=== PATIENT | female | born 1930 | race Caucasian/White ===

== ENCOUNTER 2016-11-10 11:22 | Day surgery (SDC) | payer MEDICARE ==
[2016-11-10] VITALS (294 sets, daily range): BP systolic 83–147; BP diastolic 66–95; PULSE 72–89; TEMP 97.4–98.2; O2SAT 55–100
[~2016-11-10] VITALS: Ht 144.8 cm; Wt 56.8 kg
[~2016-11-10 11:22] MED LIST: BLADDER PILL PO; BLOOD PRESSURE; CARBATROL100 MG PO; FERROUS SU325 MG/TAB PO; IMIPRAMINE HCL25 MG PO; LISINOPRIL/HCTZ1 TAB PO; NORCO 325 MG-51 TAB PO; PAXIL 20MG20 MG PO; PAXIL PO; PREDNISONE20 MG PO; PRIL40 PO; TEGRETOL 2200 MG/TA1 PO; TOFRANIL 25MG T25 MG PO; ZESTORETIC 12.51 TAB PO; [UNRECOGNIZED DRUG - CODE] OP; [UNRECOGNIZED DRUG - OTHER]
[2016-11-10 12:11] LABS: INR 1.1 (0.8-3.0); PROTHROMBIN TIME 11.9 SECONDS (9.7-12.8)
[2016-11-10 12:16] LABS: HEMATOCRIT 37.8 % (37.0-47.0); HEMOGLOBIN 12.3 g/dl (12.5-16.0); MEAN CELL VOLUME 92 fl (80.0-100.0); MEAN CORPUSCULAR HEMOGLOBIN 30 pg (27.0-31.0); MEAN CORPUSCULAR HGB CONC 33 g/dl (33.0-37.0); MEAN PLATELET VOLUME 12.1 fl (7.4-10.4); PLATELET COUNT 200 K/mm3 (130-400); REDCELL DISTRIBUTION WIDTH-CV 14.4 % (11.5-14.5); WHITE BLOOD COUNT 7.1 K/mm3 (4.8-10.8)
[2016-11-10] MEDS ORDERED: XANAX .25M0.25 MG/TA PO (12:22)
[2016-11-10] MEDS ORDERED: LASIX 20MG TABL20 MG PO (12:24)
[2016-11-10 12:25] LABS: CALCIUM 8.5 mg/dL (8.4-10.2); CREATININE, serum 0.99 mg/dL (0.52-1.25); POTASSIUM 3.7 mmol/L (3.4-5.0)
[2016-11-10] MEDS ORDERED: LOPRESSOR 225 MG/TAB PO (12:26)
[2016-11-10] MEDS ORDERED: CRANBERRY FRUI425 MG PO (12:27)
[2016-11-11] VITALS (268 sets, daily range): BP systolic 103–109; BP diastolic 47–65; PULSE 70–79; TEMP 97.5–98; O2SAT 80–100
[2016-11-11 06:46] LABS: BASO % 0.2 % (0.0-2.0); EOS # 0.1 (0.0-0.7); EOS % 1.2 % (0-4.0); GRAN # 7.4 (1.4-6.5); LYMPH # 0.8 (1.2-3.4); LYMPH % 8.1 % (20.0-51.0); MEAN CELL VOLUME 93 fl (80.0-100.0); MEAN CORPUSCULAR HGB CONC 32 g/dl (33.0-37.0); MEAN PLATELET VOLUME 12.6 fl (7.4-10.4); MONO # 1.1 (0.1-0.6); MONO % 11.2 % (1.7-9.3); PLATELET COUNT 190 K/mm3 (130-400); RED BLOOD COUNT 3.72 M/mm3 (4.10-5.30); REDCELL DISTRIBUTION WIDTH-CV 14.3 % (11.5-14.5); WHITE BLOOD COUNT 9.4 K/mm3 (4.8-10.8)
[2016-11-11 06:51] LABS: HEMATOCRIT 34.4 % (37.0-47.0); HEMOGLOBIN 11.1 g/dl (12.5-16.0); MEAN CORPUSCULAR HEMOGLOBIN 30 pg (27.0-31.0)
[2016-11-11 06:59] LABS: CALCIUM 8.3 mg/dL (8.4-10.2); CREATININE, serum 0.99 mg/dL (0.52-1.25); POTASSIUM 3.4 mmol/L (3.4-5.0)
[2016-11-11] MEDS ORDERED: BRILINTA90 MG PO (09:06)
[2016-11-11] MEDS ORDERED: LIPITOR 40MG TA40 MG PO (09:06)
[2016-11-11] MEDS ORDERED: ASPIRIN E.C. 8181 MG PO (09:06)
== END 2016-11-11 11:00 | disposition home or self-care (01) ==
LOC: COL.CAR 11:22 → ICU 16:35 → COL.CAR 11-11 11:00
PROVIDERS: Internal Medicine Cardiovascular Disease
DX: I42.9 Cardiomyopathy, unspecified (principal); I25.10 Atherosclerotic heart disease of native coronary artery without angina pectoris; R06.02 Shortness of breath; I08.3 Combined rheumatic disorders of mitral, aortic and tricuspid valves; I09.81 Rheumatic heart failure; I50.20 Unspecified systolic (congestive) heart failure; K21.9 Gastro-esophageal reflux disease without esophagitis; I10 Essential (primary) hypertension; N39.46 Mixed incontinence; C85.90 Non-Hodgkin lymphoma, unspecified, unspecified site; G40.909 Epilepsy, unspecified, not intractable, without status epilepticus
CPT/HCPCS: OP; C1725; C1760; C1769; C1874; C1887; C1894; C9600; J0583; J2250; J3010; Q9967

== ENCOUNTER 2017-03-02 15:04 | Outpatient (RCR) | payer MEDICARE ==
[~2017-03-02 15:04] MED LIST changes: +ASPIRIN E.C. 8181 MG PO; +BRILINTA60 MG PO; +CRANBERRY FRUI425 MG PO; +LASIX 20MG TABL20 MG PO; +LIPITOR 40MG TA40 MG PO; +LOPRESSOR 225 MG/TAB PO; +XANAX .25M0.25 MG/TA PO
[2017-03-09] MEDS ORDERED: ELIQUIS 2.5 PO (14:39)
== END 2017-03-08 | disposition still patient (30) ==
LOC: COL.CR
DX: Z48.812 Encounter for surgical aftercare following surgery on the circulatory system (principal); Z95.5 Presence of coronary angioplasty implant and graft; I25.10 Atherosclerotic heart disease of native coronary artery without angina pectoris

== ENCOUNTER 2017-04-27 15:15 | Outpatient (RCR) | payer MEDICARE ==
[~2017-04-27 15:15] MED LIST changes: +BRILINTA90 MG PO; +COUMADIN 3MG3 MG/TAB PO; +ELIQUIS 2.5 PO
== END 2017-05-13 12:55 | disposition home or self-care (01) ==
LOC: COL.CR 15:15
DX: Z48.812 Encounter for surgical aftercare following surgery on the circulatory system (principal); Z95.5 Presence of coronary angioplasty implant and graft

== ENCOUNTER 2017-07-05 16:30 | Emergency (ER) | payer MEDICARE ==
[~2017-07-05] VITALS: Ht 121.9 cm; Wt 54.5 kg
[2017-07-05 16:33] VITALS: TEMP 96.9
[2017-07-05 18:42] VITALS: BP 115/68; PULSE 86
== END 2017-07-05 18:40 | disposition home or self-care (01) ==
LOC: COL.ER 16:30
DX: S52.502A Unspecified fracture of the lower end of left radius, initial encounter for closed fracture (principal); I10 Essential (primary) hypertension; F32.9 Major depressive disorder, single episode, unspecified; F41.9 Anxiety disorder, unspecified; E78.5 Hyperlipidemia, unspecified; I25.10 Atherosclerotic heart disease of native coronary artery without angina pectoris; Z85.72 Personal history of non-Hodgkin lymphomas; Z90.710 Acquired absence of both cervix and uterus; Z90.49 Acquired absence of other specified parts of digestive tract; Z90.89 Acquired absence of other organs; Z98.890 Other specified postprocedural states; Z79.82 Long term (current) use of aspirin; Z79.01 Long term (current) use of anticoagulants; W19.XXXA Unspecified fall, initial encounter
CPT/HCPCS: Q4050

== ENCOUNTER 2017-09-30 15:36 | Outpatient (RCR) | payer MEDICARE | END 2017-12-29 | disposition home or self-care (01) | LOC: MKS.ESL.OT | DX: S52.502D Unspecified fracture of the lower end of left radius, subsequent encounter for closed fracture with routine healing (principal) | CPT/HCPCS: G8984-GO; G8985-GO; G8986-GO ==

== ENCOUNTER 2017-12-21 14:47 | Outpatient (RCR) | payer SELFPAY | END 2017-12-24 | disposition home or self-care (01) | LOC: COL.CR | DX: Z02.9 Encounter for administrative examinations, unspecified (principal) ==

== ENCOUNTER 2018-03-10 15:18 | Outpatient (RCR) | payer SELFPAY | END 2018-03-23 | disposition home or self-care (01) | LOC: COL.CR | DX: Z02.9 Encounter for administrative examinations, unspecified (principal) ==

== ENCOUNTER 2018-05-05 15:52 | Outpatient (CLI) | payer MEDICARE ==
[~2018-05-05] VITALS: Ht 121.9 cm; Wt 55.7 kg
[2018-05-05 16:27] VITALS: BP 112/68; PULSE 52; TEMP 98
== END 2018-05-05 17:15 | disposition home or self-care (01) ==
LOC: EUO 15:52
DX: M81.0 Age-related osteoporosis without current pathological fracture (principal)
CPT/HCPCS: J3489

== ENCOUNTER 2018-05-26 14:09 | Outpatient (CLI) | payer MEDICARE ==
[~2018-05-26] VITALS: Ht 121.9 cm; Wt 54.0 kg
[2018-05-26 15:14] VITALS: BP 134/55; PULSE 82; TEMP 98.3
== END 2018-05-26 15:43 | disposition home or self-care (01) ==
LOC: EUO 14:09
DX: Z45.2 Encounter for adjustment and management of vascular access device (principal)
CPT/HCPCS: J1644

== ENCOUNTER 2018-06-23 14:09 | Outpatient (RCR) | payer SELFPAY | END 2018-06-24 | disposition home or self-care (01) | LOC: COL.CR | DX: Z02.89 Encounter for other administrative examinations (principal) ==

== ENCOUNTER 2018-09-22 15:00 | Outpatient (RCR) | payer SELFPAY | END 2018-09-26 | disposition home or self-care (01) | LOC: COL.CR | DX: Z02.89 Encounter for other administrative examinations (principal) ==

== ENCOUNTER 2018-11-24 14:12 | Outpatient (CLI) | payer MEDICARE ==
[~2018-11-24] VITALS: Ht 121.9 cm; Wt 45.9 kg
[2018-11-24 14:41] VITALS: BP 101/52; PULSE 52; TEMP 98.1
== END 2018-11-24 14:42 | disposition home or self-care (01) ==
LOC: EUO 14:12
DX: Z45.2 Encounter for adjustment and management of vascular access device (principal)
CPT/HCPCS: J1644

== ENCOUNTER 2018-12-06 15:10 | Outpatient (RCR) | payer MEDICARE | END 2018-12-26 | disposition home or self-care (01) | LOC: COL.CR | DX: Z02.89 Encounter for other administrative examinations (principal) ==

== ENCOUNTER 2019-02-23 14:49 | Outpatient (CLI) | payer MEDICARE ==
[~2019-02-23] VITALS: Ht 121.9 cm; Wt 56.8 kg
[2019-02-23 15:30] VITALS: BP 134/71; PULSE 84; TEMP 97.8
[2019-02-23] MEDS ORDERED: NAMENDA5 MG PO (15:30)
== END 2019-02-23 16:10 | disposition home or self-care (01) ==
LOC: EUO 14:49
DX: Z45.2 Encounter for adjustment and management of vascular access device (principal)
CPT/HCPCS: J1644

== ENCOUNTER 2019-03-16 14:34 | Outpatient (RCR) | payer SELFPAY ==
[~2019-03-16 14:34] MED LIST changes: +NAMENDA5 MG PO
== END 2019-04-03 | disposition home or self-care (01) ==
LOC: COL.CR
DX: Z02.89 Encounter for other administrative examinations (principal)

== ENCOUNTER → 2019-05-23 | Outpatient (CLI) | payer MEDICARE ==
[~2019-05-23] VITALS: Ht 121.9 cm; Wt 55.0 kg
[~2019-05-23] MED LIST changes: +TOPROL XL 25MG25 MG PO
[2019-05-23 15:14] VITALS: BP 102/63; PULSE 68; TEMP 97.1
== END ==
LOC: EUO 14:09
DX: Z45.2 Encounter for adjustment and management of vascular access device (principal)
CPT/HCPCS: J1644

== ENCOUNTER 2019-06-27 14:34 | Outpatient (RCR) | payer MEDICARE | END 2019-07-03 | disposition home or self-care (01) | LOC: COL.CR | DX: Z02.89 Encounter for other administrative examinations (principal) ==

== ENCOUNTER 2019-07-18 14:42 | Outpatient (RCR) | payer MEDICARE | END 2019-10-02 | disposition home or self-care (01) | LOC: COL.CR | DX: Z02.89 Encounter for other administrative examinations (principal) ==

== ENCOUNTER 2019-08-22 14:07 | Outpatient (CLI) | payer MEDICARE ==
[2019-08-22 14:31] VITALS: BP 120/69; PULSE 86; TEMP 98
== END 2019-08-22 15:03 | disposition home or self-care (01) ==
LOC: EUO 14:07
DX: Z79.899 Other long term (current) drug therapy (principal)
CPT/HCPCS: J1644

== ENCOUNTER 2019-11-02 13:41 | Outpatient (CLI) | payer MEDICARE ==
--- NOTE | 2019-11-01 18:30 | NUR ---
LEFT MESSAGE AND ENCOURAGED RETURN PHONE CALL TO REVIEW ID SCREENING
[~2019-11-02] VITALS: Ht 149.9 cm; Wt 56.5 kg
[2019-11-02 14:15] VITALS: BP 123/77; PULSE 74; TEMP 98.3
[2019-11-02] MEDS ORDERED: MYRBETR25MG PO (15:00)
[2019-11-02] MEDS ORDERED: EXELON PAT4.6 MG/24 TD (15:00)
== END 2019-11-02 15:10 | disposition home or self-care (01) ==
LOC: EUO 13:41
DX: M81.0 Age-related osteoporosis without current pathological fracture (principal)
CPT/HCPCS: J1644; J3489

== ENCOUNTER → 2019-11-21 | Outpatient (CLI) | payer MEDICARE ==
[~2019-11-21] MED LIST changes: +EXELON PAT4.6 MG/24 TD; +MYRBETR25MG PO
== END ==
LOC: COL.RAD 09:53
DX: G40.909 Epilepsy, unspecified, not intractable, without status epilepticus (principal); R25.9 Unspecified abnormal involuntary movements; R41.3 Other amnesia

== ENCOUNTER 2020-01-13 07:58 | Day surgery (SDC) | payer MEDICARE ==
[~2020-01-13] VITALS: Ht 149.9 cm; Wt 56.7 kg
[2020-01-13 08:10] VITALS: BP 144/78; PULSE 69; TEMP 98.3
[2020-01-13] MEDS ORDERED: PAXIL 10MG10 MG PO (08:42)
[2020-01-13] MEDS ORDERED: COZAAR 25MG25 MG/TAB PO (08:43)
[2020-01-13] MEDS ORDERED: TOFRANIL 25MG T25 MG PO (08:43)
[2020-01-13 10:03] VITALS: BP 139/76; PULSE 79; TEMP 97.6
--- NOTE | 2020-01-13 10:03 | NUR ---
PATIENT TRANSPORTED PER CART TO [facility] ACCOMPANIED BY END STAFF. PATIENT AMBULATED FROM CART TO CHAIR WITH 2 ASSIST. SLOW STEADY GAIT. MONITORS APPLIED. VSS ON ROOM AIR. DAUGHTER AT BEDSIDE. PATIENT ALERT AND TALKING. VERBAL REPORT RECEIVED. 1010 PATIENT DENIES DISCOMFORT AND NAUSEA. PATIENT GIVEN PEPSI AND MUFFIN.
[2020-01-13 10:15] VITALS: BP 127/82; PULSE 76
--- NOTE | 2020-01-13 10:20 | NUR ---
VSS ON ROOM AIR. DOCTOR COMES AND TALKS WITH PATIENT AND DAUGTHER. PATIENT DENIES DISCOMFORT AND NAUSEA. PATIENT EATS WITHOUT PROBLEMS.
[2020-01-13 10:30] VITALS: BP 153/70; PULSE 85
--- NOTE | 2020-01-13 10:33 | NUR ---
PATIENT DOING WELL. IV SITE DC'D WITH CATHETER TIP INTACT. PRESSURE AND BANDAGE APPLIED.
[2020-01-13 10:45] VITALS: BP 153/74; PULSE 80
--- NOTE | 2020-01-13 10:45 | NUR ---
VSS ON ROOM AIR. DISCHARGE INSTRUCTIONS GIVEN VERBAL AND DISCHARGE PACKET GIVEN. DAUGHTER PRESENT FOR INSTRUCTIONS. QUESTIONS ANSWERED AND PATIENT VOICED UNDERSTANDING. PATIENT CHANGES INTO STREET [place].
--- NOTE | 2020-01-13 10:50 | NUR ---
PATIENT DISCHARGED PER WHEELCHAIR ACCOMPANIED BY AMB STAFF. DAUGHTER DRIVING CAR. PATIENT AMBULATES WITH STEADY GAIT TO CAR.
[2020-01-13 11:51] VITALS: BP 102/60; PULSE 77
== END 2020-01-13 10:50 | disposition home or self-care (01) ==
LOC: SDCO 07:58
DX: Z12.11 Encounter for screening for malignant neoplasm of colon (principal); D12.5 Benign neoplasm of sigmoid colon; K57.30 Diverticulosis of large intestine without perforation or abscess without bleeding; I10 Essential (primary) hypertension; K44.9 Diaphragmatic hernia without obstruction or gangrene; E78.00 Pure hypercholesterolemia, unspecified; D50.9 Iron deficiency anemia, unspecified; Z92.3 Personal history of irradiation; Z95.0 Presence of cardiac pacemaker; R56.9 Unspecified convulsions; Z90.710 Acquired absence of both cervix and uterus; Z90.49 Acquired absence of other specified parts of digestive tract; F32.9 Major depressive disorder, single episode, unspecified
CPT/HCPCS: J2704; J7120

== ENCOUNTER 2020-02-01 13:56 | Outpatient (CLI) | payer MEDICARE ==
[~2020-02-01] VITALS: Ht 149.9 cm; Wt 55.9 kg
[~2020-02-01 13:56] MED LIST changes: +COZAAR 25MG25 MG/TAB PO; +PAXIL 10MG10 MG PO
[2020-02-01 14:05] VITALS: BP 148/75; PULSE 66; TEMP 98
== END 2020-02-01 14:16 | disposition home or self-care (01) ==
LOC: EUO 13:56
DX: Z45.2 Encounter for adjustment and management of vascular access device (principal)
CPT/HCPCS: J1644

== ENCOUNTER 2020-04-30 15:30 | Outpatient (CLI) | payer MEDICARE ==
[~2020-04-30] VITALS: Ht 149.9 cm; Wt 55.9 kg
[2020-04-30 17:01] VITALS: BP 102/60; PULSE 84; TEMP 98
--- NOTE | 2020-04-30 17:06 | NUR ---
Pt assisted out by wheelchair to [employer]'s car.
== END 2020-04-30 17:06 | disposition home or self-care (01) ==
LOC: EUO 15:30
DX: Z45.2 Encounter for adjustment and management of vascular access device (principal)
CPT/HCPCS: J1644

== ENCOUNTER 2020-07-30 15:26 | Outpatient (CLI) | payer MEDICARE ==
[~2020-07-30] VITALS: Ht 149.9 cm; Wt 53.7 kg
[2020-07-30] MEDS ORDERED: EXELON3 MG PO (15:50)
== END 2020-07-30 16:18 | disposition home or self-care (01) ==
LOC: EUO 15:26
DX: Z87.51 Personal history of pre-term labor (principal)
CPT/HCPCS: J1644

== ENCOUNTER 2020-10-29 15:27 | Outpatient (CLI) | payer MEDICARE ==
[~2020-10-29] VITALS: Ht 149.9 cm; Wt 56.4 kg
[~2020-10-29 15:27] MED LIST changes: +EXELON3 MG PO
[2020-10-29 16:07] VITALS: BP 121/71; PULSE 77; TEMP 97.9
== END 2020-10-29 16:09 | disposition home or self-care (01) ==
LOC: EUO 15:27
DX: Z85.71 Personal history of Hodgkin lymphoma (principal)
CPT/HCPCS: J1644

== ENCOUNTER 2021-01-21 14:54 | Outpatient (CLI) | payer MEDICARE ==
[~2021-01-21] VITALS: Ht 149.9 cm; Wt 58.0 kg
[2021-01-21 15:35] VITALS: BP 121/60; PULSE 69; TEMP 98
== END 2021-01-21 15:36 | disposition home or self-care (01) ==
LOC: EUO 14:54
DX: Z85.71 Personal history of Hodgkin lymphoma (principal); Z95.9 Presence of cardiac and vascular implant and graft, unspecified
CPT/HCPCS: J1644

== ENCOUNTER 2021-04-29 14:58 | Outpatient (CLI) | payer MEDICARE ==
[~2021-04-29] VITALS: Ht 149.9 cm; Wt 57.0 kg
[~2021-04-29 14:58] MED LIST changes: -EXELON3 MG PO
[2021-04-29 15:55] VITALS: BP 145/78; PULSE 77; TEMP 97.7
== END 2021-04-29 16:33 | disposition home or self-care (01) ==
LOC: EUO 14:58
DX: Z85.71 Personal history of Hodgkin lymphoma (principal); Z95.9 Presence of cardiac and vascular implant and graft, unspecified
CPT/HCPCS: J1644

== ENCOUNTER 2021-07-29 11:03 | Outpatient (CLI) | payer MEDICARE ==
[~2021-07-29] VITALS: Ht 149.9 cm; Wt 55.4 kg
[2021-07-29 11:34] VITALS: BP 104/67; PULSE 75; TEMP 98.3
== END 2021-07-29 15:09 | disposition home or self-care (01) ==
LOC: EUO 11:03
DX: Z85.71 Personal history of Hodgkin lymphoma (principal)
CPT/HCPCS: J1644